=== PATIENT | female | born 1965 | race Caucasian/White ===

== ENCOUNTER → 2020-12-12 | Outpatient (CLI) | payer BC, OTHER ==
[~2020-12-12] MED LIST: BLACK COHOSH40 MG PO; CALCIUM + D SO1 EACH PO; CALCIUM +D PO; CARAFATE1 GM PO; ESCITALOPRAM OX20 MG PO; FLONASE 0.05% N16 GM; LEVOTHYROXINE25 MCG PO; PROTONIX40 MG PO; RANITIDINE HCL150 MG PO; SYNTHROID25 MCG PO
== END ==
LOC: RAD 07:28
DX: K44.9 Diaphragmatic hernia without obstruction or gangrene (principal); K21.9 Gastro-esophageal reflux disease without esophagitis; K22.2 Esophageal obstruction
CPT/HCPCS: 74246

== ENCOUNTER → 2021-03-21 | Outpatient (CLI) | payer BC, OTHER | LOC: KOH-I 15:22 | DX: M54.16 Radiculopathy, lumbar region (principal); M43.16 Spondylolisthesis, lumbar region | CPT/HCPCS: 72100 ==